=== PATIENT | female | born 1975 | race Caucasian/White ===

== ENCOUNTER → 2023-05-17 13:40 | Outpatient (REF) | payer BC, SELFPAY | LOC: WDC 13:40 | PROVIDERS: ATTENDING PHYSICIAN Obstetrics & Gynecology; FAMILY PHYSICIAN Family Medicine | DX: Z12.31 Encounter for screening mammogram for malignant neoplasm of breast (principal) | CPT/HCPCS: 77063; 77067 ==

== ENCOUNTER → 2023-06-29 06:21 | Day surgery (SDC) | payer BC, SELFPAY | LOC: GI 06:21 | PROVIDERS: ATTENDING PHYSICIAN Internal Medicine | DX: D12.2 Benign neoplasm of ascending colon (principal); K63.5 Polyp of colon; K64.8 Other hemorrhoids; Z83.710 Family history of adenomatous and serrated polyps | CPT/HCPCS: 45385; 45380; 88305 ==

== ENCOUNTER → 2023-11-22 15:02 | Outpatient (REF) | payer BC, SELFPAY | LOC: WDC 15:02 | PROVIDERS: ATTENDING PHYSICIAN Obstetrics & Gynecology; FAMILY PHYSICIAN Family Medicine | DX: R92.8 Other abnormal and inconclusive findings on diagnostic imaging of breast (principal) | CPT/HCPCS: 76642 ==

== ENCOUNTER → 2024-05-22 14:28 | Outpatient (REF) | payer BC, SELFPAY | LOC: WDC 14:28 | PROVIDERS: ATTENDING PHYSICIAN Obstetrics & Gynecology; FAMILY PHYSICIAN Family Medicine | DX: Z12.31 Encounter for screening mammogram for malignant neoplasm of breast (principal); R92.8 Other abnormal and inconclusive findings on diagnostic imaging of breast | CPT/HCPCS: 76642; 77063; 77067 ==

== ENCOUNTER → 2024-05-29 08:12 | Outpatient (REF) | payer BC, SELFPAY ==
[2024-05-29 09:09] LABS: Hematocrit 40.4 % (37.0-47.0); Hemoglobin 14.1 g/dL (12.0-16.0); Mean Corp Hgb Conc. 34.9 g/dL (33.0-37.0); Mean Corpuscular Hgb 32.2 pg (27.0-31.0); Mean Corpuscular Volume 92.2 fL (81.0-99.0); Mean Platelet Volume 9.5 fL (7.4-10.4); Platelet Count 212 10^3/uL (130-400); Red Blood Cell Count 4.38 10^6/uL (4.20-5.40); Red Cell Dist. Width 11.9 % (11.5-14.5); White Blood Cell Count 3.4 10^3/uL (4.8-10.8)
[2024-05-29 09:18] LABS: ALT (SGPT) 19 U/L (0-35); AST (SGOT) 20 U/L (14-36); Albumin 3.9 g/dl (3.5-5.0); Alkaline Phosphatase 52 U/L (38-126); Blood Urea Nitrogen 8 mg/dl (7-17); Calcium 8.9 mg/dl (8.4-10.2); Carbon Dioxide 26 mmol/L (22-30); Chloride 106 mmol/L (98-107); Glucose 94 mg/dl (70-99); HDL Cholesterol 48 mg/dl; LDL Cholesterol, Calculated 63 mg/dl; Potassium 3.7 mmol/L (3.5-5.1); Sodium 140 mmol/L (135-145); Total Bilirubin 0.5 mg/dl (0.2-1.3); Total Cholesterol 127 mg/dl (50-199); Total Protein 6.1 g/dl (6.3-8.2); Triglyceride 80 mg/dl (10-149); Very Low Density Lipoprotein 16 mg/dl (0-30); eGFR > 60.00
== END ==
LOC: WDC 08:12
PROVIDERS: Internal Medicine; ATTENDING PHYSICIAN Obstetrics & Gynecology; FAMILY PHYSICIAN Family Medicine
DX: R11.0 Nausea (principal); Z00.00 Encounter for general adult medical examination without abnormal findings; E55.9 Vitamin D deficiency, unspecified; R92.8 Other abnormal and inconclusive findings on diagnostic imaging of breast
CPT/HCPCS: 36415; 76642; 80053; 80061; 82306; 83036; 84443; 85027

== ENCOUNTER 2024-07-11 06:27 | Day surgery (SDC) | payer BC, SELFPAY | END 2024-07-11 13:03 | disposition home or self-care (01) | LOC: GI 06:27 | PROVIDERS: ATTENDING PHYSICIAN Internal Medicine | DX: K44.9 Diaphragmatic hernia without obstruction or gangrene (principal); K25.9 Gastric ulcer, unspecified as acute or chronic, without hemorrhage or perforation; K31.89 Other diseases of stomach and duodenum; R11.2 Nausea with vomiting, unspecified | CPT/HCPCS: 43239; 88305; 88342 ==

== ENCOUNTER → 2024-07-20 10:46 | Outpatient (REF) | payer BC, SELFPAY ==
[2024-07-20 12:18] LABS: % Basophils 0.8 % (0-2); % Eosinophils 0.5 % (0-6); % Immature Granulocytes 0.3 % (0-0.5); % Lymphocytes 33.1 % (20.5-51.1); % Monocytes 7.8 % (1.7-9.3); % Neutrophils 57.5 % (42.2-75.2); Absolute Basophils 0.1 10^3/uL (0-0.2); Absolute Monocytes 0.5 10^3/uL (0.1-0.6); Absolute Neutrophils 3.4 10^3/uL (1.4-6.5); Hematocrit 40.2 % (37.0-47.0); Mean Corp Hgb Conc. 34.8 g/dL (33.0-37.0); Mean Platelet Volume 9.6 fL (7.4-10.4); Nucleated Red Blood Cells % 0 %; Platelet Count 246 10^3/uL (130-400); Red Blood Cell Count 4.37 10^6/uL (4.20-5.40); Red Cell Dist. Width 12.2 % (11.5-14.5); White Blood Cell Count 5.9 10^3/uL (4.8-10.8)
[2024-07-20 15:22] LABS: Folate 9.4 ng/ml (2.76-20); Vitamin B12 299 pg/ml (239-931)
[2024-07-20 21:03] LABS: HIV Combo Negative (Negative)
[2024-07-22 23:58] LABS: IgA 203 mg/dl (70-400)
[2024-07-23 01:00] LABS: Endomysial IgA Antibody Titer <1:10 (<1:10)
== END ==
LOC: REG 10:46
PROVIDERS: ATTENDING PHYSICIAN Internal Medicine; FAMILY PHYSICIAN Family Medicine
DX: D72.819 Decreased white blood cell count, unspecified (principal); K29.80 Duodenitis without bleeding; K90.0 Celiac disease
CPT/HCPCS: 36415; 82607; 82746; 82784; 83516; 85025; 86231; 87389

== ENCOUNTER → 2024-10-10 18:45 | Outpatient (REF) | payer BC, SELFPAY | LOC: MRI 3T 18:45 | PROVIDERS: ATTENDING PHYSICIAN Obstetrics & Gynecology; FAMILY PHYSICIAN Family Medicine | DX: R92.8 Other abnormal and inconclusive findings on diagnostic imaging of breast (principal) | CPT/HCPCS: 77049; A9585 ==